=== PATIENT | male | born 1985 | race Caucasian/White ===

== ENCOUNTER 2016-10-07 22:16 | Emergency (ER) | payer OTHER ==
[2016-10-07 22:27] VITALS: TEMP 98
[2016-10-07] MEDS ORDERED: IBUPROFEN 600 MG TAB PO STA (22:28)
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
[2016-10-07] MEDS ORDERED: HYDROcodone/APAP 5-325MG 1 EACH TAB PO STA (22:43)
--- NOTE | 2016-10-07 22:46 | XR ---
EXAMINATION TYPE: XR shoulder complete LT DATE OF EXAM: 10/07/2016 10:39 PM COMPARISON: NONE HISTORY: Shoulder pain TECHNIQUE: 2 views FINDINGS: There is an anterior dislocation of the humeral head. I see no fracture line. IMPRESSION: Anterior dislocation of the shoulder joint.
--- NOTE | 2016-10-08 00:03 | XR ---
EXAMINATION TYPE: XR shoulder limited LT DATE OF EXAM: 10/07/2016 11:58 PM COMPARISON: NONE HISTORY: Post reduction TECHNIQUE: Single view FINDINGS: There is anatomic reduction of the shoulder joint. I see no fracture line. IMPRESSION: Anatomic reduction. Left cervical rib is noted.
[2016-10-08 00:11] VITALS: BP 131/71; PULSE 83; RESP 16
== END 2016-10-08 00:11 | disposition home or self-care (01) ==
LOC: EC 22:16
DX: S43.015A Anterior dislocation of left humerus, initial encounter (principal); Y04.2XXA Assault by strike against or bumped into by another person, initial encounter; Y99.0 Civilian activity done for income or pay
CPT/HCPCS: 23650; 99152; 99283

== ENCOUNTER 2018-07-07 18:36 | Emergency (ER) | payer OTHER ==
[2018-07-07] MEDS ORDERED: MORPHINE SULFATE 4 MG/ML SYRINGE IM STA (19:00)
--- NOTE | 2018-07-07 19:03 | ED ---
Upper Extremity HPI - General Chief Complaint: Extremity Injury, Upper Stated Complaint: LEFT SHOULDER INJURY, POSS DISLOCATION Time Seen by Provider: 07/07/18 18:55 Source: patient Mode of arrival: ambulatory Limitations: no limitations - History of Present Illness Initial Comments: 32-year-old male patient presents to the emergency department today for evaluation of left shoulder pain. Patient states approximately an hour ago he was working when he reached to pull a stapled curtain down from the ceiling and felt his shoulder dislocate. States that he is having pain radiating down the arm. States that the arm feels cold to him. Patient states that he did dislocate his shoulder approximately one year ago and this feels very similar. He denies any other injuries.Patient denies any headache, neck pain, back pain, chest pain, shortness of breath, dizziness, weakness, abdominal pain, nausea, vomiting, or difficulties with bowel movements or urination. - Related Data Home Medications Medication Instructions Recorded Confirmed Multivitamins, Thera [Multivitamin 1 tab PO DAILY 07/07/18 07/07/18 (formulary)] Allergies Allergy/AdvReac Type Severity Reaction Status Date / Time No Known Allergies Allergy Verified 07/07/18 19:38 Review of Systems ROS Statement: Those systems with pertinent positive or pertinent negative responses have been documented in the HPI. ROS Other: All systems not noted in ROS Statement are negative. Past Medical History Past Medical History: No Reported History History of Any Multi-Drug Resistant Organisms: None Reported Past Surgical History: No Surgical Hx Reported Past Psychological History: No Psychological Hx Reported Smoking Status: Never smoker Past Alcohol Use History: None Reported Past Drug Use History: None Reported General Exam Limitations: no limitations General appearance: alert, in no apparent distress, other (Social well-developed , well-nourished adult male patient in no acute distress. Vital signs upon presentation are temperature 98.5F, pulse 104, respirations 18, blood pressure 147/77, pulse ox 97% on room air.) Neck exam: Present: normal inspection, full ROM. Absent: tenderness, meningismus, lymphadenopathy Respiratory exam: Present: normal lung sounds bilaterally. Absent: respiratory distress, wheezes, rales, rhonchi, stridor Cardiovascular Exam: Present: regular rate, normal rhythm, normal heart sounds. Absent: systolic murmur, diastolic murmur, rubs, gallop, clicks Extremities exam: Present: full ROM, tenderness (left shoulder), normal capillary refill, other (Left shoulder deformity. Skin to the left upper extremities pink, warm, dry. Cap refills less than 3 seconds. Radial pulses 2 + and equal bilaterally. [employer] strength is strong and equal.). Absent: normal inspection, pedal edema, joint swelling, calf tenderness Neurological exam: Present: alert, oriented X3, CN II-XII intact Psychiatric exam: Present: normal affect, normal mood Skin exam: Present: warm, dry, intact, normal color. Absent: rash Course Vital Signs 07/07/18 07/07/18 07/07/18 18:45 19:06 20:56 Temperature 98.5 F 98.6 F Pulse Rate 104 H 89 Respiratory 18 20 20 Rate Blood Pressure 147/77 137/88 O2 Sat by Pulse 97 99 Oximetry Procedures - Orthopedic Joint Reduction Joint #1 Consent Obtained: verbal consent Side: left Joint Reduction Location: shoulder Analgesia: other (Oral ibuprofen and valium) Shoulder Technique Used (if applicable): Koch Post-Reduction Neuro Exam: intact, no change Post-Reduction Vascular Exam: intact, no change Post Reduction X-Ray Obtained: Yes Post Reduction X-Ray Results: reduced Splint Applied: Yes (Sling left arm) Patient Tolerated Procedure: well Medical Decision Making - Medical Decision Making 32-year-old male patient presented to the emergency department today for evaluation of left shoulder dislocation. Physical examination did reveal left shoulder deformity. Neurovascular status was intact. X-ray did reveal an anteroinferomedial shoulder dislocation. Did perform Koch technique to reduce the shoulder after administration of oral ibuprofen and Valium. Shoulder was reduced easily. Patient tolerated procedure well. Postreduction x -rays did show anatomic reduction of the joint. Patient was placed in a shoulder immobilizer sling. He is instructed to follow up with orthopedic physician for recheck as soon as possible. Return parameters were discussed in detail. He verbalizes understanding and agrees with this plan. - Radiology Data Radiology results: report reviewed, image reviewed Two-view x-ray of the left shoulder was obtained. There is anteroinferomedial displacement left humeral head with respect to the left bony glenoid. No evident fractures. No other findings. Impression by Dr. Dima James shows anterior glenohumeral joint dislocation. One view x-ray of the left shoulder was obtained. There is interval glenohumeral joint reduction, with anatomic positioning alignment at the glenohumeral joint presently. No evident fractures. No other findings. Impression by Dr. Dima James shows post reduction. Disposition Clinical Impression: Dislocation of left shoulder joint Disposition: HOME SELF-CARE Condition: Good Instructions: Shoulder Dislocation (ED) Additional Instructions: Apply ice to the shoulder. Take Tylenol Motrin for pain control. Leave arm in sling until follow up. Follow-up with orthopedics for recheck in 1-2 days. Return immediately for any new, worsening, or concerning symptoms. Is patient prescribed a controlled substance at d/c from ED?: No Referrals: Juan Ramon Sandoval DO [Doctor of Osteopathic Medicine] - 1-2 days Time of Disposition: 20:38
[2018-07-07 19:07] VITALS: RESP 20
[2018-07-07] MEDS ORDERED: DIAZEPAM 5 MG TAB PO STA (19:10)
[2018-07-07] MEDS ORDERED: IBUPROFEN 600 MG TAB PO STA (19:10)
--- NOTE | 2018-07-07 20:35 | XR ---
PROCEDURE: XR shoulder complete LT 2V DATE AND TIME: 07/07/2018 7:48 PM CLINICAL INDICATION: [facility] Pain injury TECHNIQUE: Department protocol. 2V COMPARISON: 10/07/16 FINDINGS: There is anteroinferomedial displacement of the left humeral head with respect to the left bony glenoid. No evident fractures. No other findings. IMPRESSION: ANTERIOR GLENOHUMERAL JOINT DISLOCATION.
--- NOTE | 2018-07-07 20:47 | XR ---
PROCEDURE: XR shoulder limited LT single AP view DATE AND TIME: 07/07/2018 8:09 PM CLINICAL INDICATION: Post reduction TECHNIQUE: Department protocol. 1V COMPARISON: Prereduction 2 views FINDINGS: There is interval glenohumeral joint reduction, with anatomic positioning and alignment at the glenohumeral joint presently. No evident fractures. No other findings. IMPRESSION: Post reduction.
[2018-07-07 21:05] VITALS: BP 137/88; PULSE 89; TEMP 98.6
== END 2018-07-07 20:57 | disposition home or self-care (01) ==
LOC: EC 18:36
DX: S43.005A Unspecified dislocation of left shoulder joint, initial encounter (principal); X50.9XXA Other and unspecified overexertion or strenuous movements or postures, initial encounter; Y92.69 Other specified industrial and construction area as the place of occurrence of the external cause; Y99.0 Civilian activity done for income or pay
CPT/HCPCS: 23650; 99283

== ENCOUNTER 2023-05-27 02:44 | Emergency (ER) | payer OTHER, BC ==
[2023-05-27 03:04] VITALS: RESP 18; TEMP 98.1
[2023-05-27] MEDS ORDERED: DIPH,PERTUS(ACELL)TETVAC-LF 0.5 ML VIAL IM ONE (03:05)
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
[2023-05-27 05:04] VITALS: BP 127/84; PULSE 83
--- NOTE | 2023-05-27 06:57 | XR ---
EXAMINATION TYPE: XR hand complete RT DATE OF EXAM: 05/27/2023 3:35 AM CLINICAL INDICATION:Male, 37 years old with history of pain; [facility] COMPARISON: None TECHNIQUE: XR hand complete RT Frontal, lateral and oblique views were obtained. FINDINGS: Normal alignment of the visualized joints. No acute osseous pathology is identified. No e vidence of soft tissue swelling. IMPRESSION: No acute osseous pathology.
== END 2023-05-27 05:00 | disposition home or self-care (01) ==
LOC: EC 02:44
DX: S60.221A Contusion of right hand, initial encounter (principal); X58.XXXA Exposure to other specified factors, initial encounter
CPT/HCPCS: 99283